=== PATIENT | male | born 1965 | race Caucasian/White ===

== ENCOUNTER 2020-05-01 18:24 | Emergency (ER) | payer OTHER ==
[~2020-05-01] VITALS: Ht 165.1 cm; Wt 81.6 kg
[2020-05-01 19:11] VITALS: BP 144/99; Ht 165.1 cm; Wt 81.6 kg
== END 2020-05-01 20:16 | disposition home or self-care (01) ==
LOC: ED 18:24
DX: U07.1 COVID-19 (principal); R03.0 Elevated blood-pressure reading, without diagnosis of hypertension